=== PATIENT | male | born 1960 | race Caucasian/White ===

== ENCOUNTER 2020-01-28 13:30 | Inpatient (IN) ==
[2020-01-28] MEDS ORDERED: CeFAZolin Syr 2,000MG/20 ML 2,000 MG/20 ML SYRINGE IVPB ONE (13:46)
[2020-01-28] MEDS ORDERED: Ringers Solution, Lactated 1,000 ML IVC SCH ×2 (14:00→17:08)
[2020-01-28] MEDS ORDERED: *HR* OxyCODONE Immed Rel 5 MG TABLET PO PRN (14:01)
[2020-01-28] MEDS ORDERED: *HR* HYDROmorphone PF 0.5 MG/0.5 ML SYRINGE IVP PRN (14:01)
[2020-01-28] MEDS ORDERED: Ondansetron 4 MG/2 ML VIAL IVP PRN ×2 (14:01→17:08)
[2020-01-28] MEDS ORDERED: *HR* Promethazine 25 MG/ML VIAL IVP PRN ×2 (14:01→20:00)
[2020-01-28] MEDS ORDERED: *HR* Meperidine 25 MG/ML SYRINGE IVP PRN (14:01)
[2020-01-28] MEDS ORDERED: *HR* Midazolam HCl 2 MG/2 ML VIAL ONE (14:07)
[2020-01-28] MEDS ORDERED: *HR* FentaNYL (PF) 100 MCG/2 ML VIAL ONE (14:07)
[2020-01-28] MEDS ORDERED: *HR* Propofol 200 MG/20 ML VIAL IVP ONE (14:08)
[2020-01-28] MEDS ORDERED: Lidocaine -MPF 2% 2 ML VIAL ONE (14:09)
[2020-01-28] MEDS ORDERED: Acetaminophen IV 1,000 MG/100 ML INFUS..BTL IVPB ONE (14:15)
[2020-01-28] MEDS ORDERED: Albuterol 2.5 MG/3 ML NEBULIZER IH ONE (14:21)
[2020-01-28] MEDS ORDERED: Ropivacaine/PF 0.5% 30 ML VIAL ONE (14:31)
[2020-01-28] MEDS ORDERED: Vancomycin 1,000 MG VIAL ONE (14:54)
[2020-01-28] MEDS ORDERED: Ethanol\\Acetic Acid\\Na Ace\\Ben 1,000 ML IRRIG.SOLN IR ONE (14:54)
[2020-01-28] MEDS ORDERED: Lidocaine HCL 4 ML Topical Solution (Laryng-O-Jet Kit Sterile Pak) TP ONE (15:27)
[2020-01-28] MEDS ORDERED: *HR* Succinylcholine 200 MG/10 ML VIAL IVP ONE (15:27)
[2020-01-28] MEDS ORDERED: Ondansetron 4 MG/2 ML VIAL ONE (15:27)
[2020-01-28] MEDS ORDERED: Dexamethasone 4 MG/ML VIAL ONE (15:33)
[2020-01-28] MEDS ORDERED: Metoclopramide 10 MG/2 ML VIAL ONE (15:35)
[2020-01-28] MEDS ORDERED: *HR* HYDROMORPHONE 2 MG/ML VIAL ONE (15:45)
[2020-01-28] MEDS ORDERED: *HR* PHENYLEPHRINE 1,000 MCG/10 ML SYRINGE IVP ONE (16:06)
[2020-01-28] MEDS ORDERED: Ketorolac 30 MG/ML VIAL ONE (16:15)
[2020-01-28 17:07] LABS: Hematocrit 46.5 % (37.5-50.1)
[2020-01-28] MEDS ORDERED: *HR* HYDROcodone/Acet 5/325 mg TABLET PO PRN (17:08)
[2020-01-28] MEDS ORDERED: Dextrose Gel 15 GM/37.5 ML TUBE PO PRN ×2 (17:08)
[2020-01-28] MEDS ORDERED: CeFAZolin 2 GM/120 ML BAG IVPB SCH (17:08)
[2020-01-28] MEDS ORDERED: Sennosides 8.6 MG TABLET PO PRN (17:08)
[2020-01-28] MEDS ORDERED: MOM Conc 10 ML UD.LIQ PO PRN (17:08)
[2020-01-28] MEDS ORDERED: Naloxone 0.4 MG/ML INJ IVP PRN (17:08)
[2020-01-28] MEDS ORDERED: *HR* Dextrose 50 % in Water (Vial) 50 ML VIAL IVP PRN (17:08)
[2020-01-28] MEDS ORDERED: D5% in Water 1,000 ML IVC PRN (17:08)
[2020-01-28] MEDS ORDERED: *HR* HYDROcodone/Acet 10/325 mg TABLET PO PRN (17:08)
[2020-01-28] MEDS: Insulin LISPRO 300 UNITS/3 ML VIAL SQ SCH (20:47)
[2020-01-28] MEDS: *HR* Metformin 500 MG TABLET PO SCH (20:47)
[2020-01-28] MEDS ORDERED: NON-FORMULARY MEDICATION 1 EACH EACH (Omega-3 Fatty Acids [Fish Oil Concentrate] 1,000 MG) PO SCH (21:00)
[2020-01-28] MEDS ORDERED: Insulin LISPRO 300 UNITS/3 ML VIAL SQ SCH (21:00)
[2020-01-28] MEDS: CeFAZolin 2 GM/120 ML BAG IVPB SCH (23:05)
[2020-01-29] MEDS ORDERED: Aspirin Enteric Coated 81 MG Tablet PO SCH ×2 (09:00)
[2020-01-29] MEDS ORDERED: lisinopriL 10 MG TABLET PO SCH (09:00)
[2020-01-29] MEDS ORDERED: NON-FORMULARY MEDICATION 1 EACH EACH (Fluticasone/Umeclidin/Vilanter [Trelegy Ellipta 100- IH SCH (09:00)
[2020-01-29] MEDS: Insulin LISPRO 300 UNITS/3 ML VIAL SQ SCH ×2 (09:05→12:59)
[2020-01-29] MEDS: *HR* Metformin 500 MG TABLET PO SCH (09:10)
[2020-01-29] MEDS: CeFAZolin 2 GM/120 ML BAG IVPB SCH (09:11)
[2020-01-29] MEDS ORDERED: Tiotropium 18 MCG inhalation IH SCH (10:00)
[2020-01-29] MEDS ORDERED: Budesonide/Formoterol 160/4.5 1 PUFF INH IH SCH (10:00)
[2020-01-29 10:48] LABS: Hematocrit 45.2 % (37.5-50.1); Hemoglobin 14.9 g/dL (12.9-16.9)
[2020-01-29 11:04] VITALS: BP 141/83
[2020-01-29 11:07] LABS: BUN/Creatinine Ratio 14 (6-26); Blood Urea Nitrogen 13 mg/dL (8-23); Calcium 9.1 mg/dL (8.6-10.3); Carbon Dioxide 23 mEq/L (23-29); Chloride 103 mEq/L (98-107); Glucose 215 mg/dL (70-105); Osmolality,Calculated 285 (280-300); Potassium 3.9 mEq/L (3.5-5.1); Sodium 134 mEq/L (136-145); eGFR For African Americans > 60 (> 60); eGFR For Non-African Americans > 60 (> 60)
[2020-01-29] MEDS ORDERED: FLU Vac QV 20-21 (6Month+)/PF 0.5 ML SYRINGE IM ONE (13:51)
== END 2020-01-29 15:12 | disposition home or self-care (01) | DRG 483 ==
LOC: SAMDAY 13:30 → EDSDCBED 13:33 → 3NENU 14:12 → SAMDAY 01-29 15:12 → 3NENU 02-05 08:10
PROVIDERS: ADMIT Orthopaedic Surgery; ATTEND Orthopaedic Surgery